=== PATIENT | female | born 1955 | race American Indian/Alaskan Native ===

== ENCOUNTER 2016-08-20 14:42 | Outpatient (CLI) | payer OTHER ==
--- NOTE | 2016-08-20 15:21 | Mammography Report ---
RIGHT DIGITAL DIAGNOSTIC MAMMOGRAM : 08/20/16 14:42:00 CLINICAL: Recalled for asymmetry. COMPARISON:07/07/16 screening FINDINGS: Lateralmedial, repeat CC and spot compression LM and CC views were performed. Satisfactory effacement of the previously described asymmetry on the spot views. No suspicious finding on the lateral or repeat CC views. IMPRESSION: Negative Mammogram. BI-RADS CATEGORY: 1 -- Negative RECOMMENDATION: Routine mammographic screening in one year. ACR BI-RADS MAMMOGRAPHIC CODES: 0 = Needs additional imaging evaluation; 1 = Negative; 2 = Benign; 3 = Probably benign; 4 = Suspicious; 5 = Malignant; 6 = Known biopsy-proven malignancy COMMENT: 1. Dense breast tissue, i.e., adenosis, fibrocystic changes, etc., may obscure an underlying neoplasm. 2. Approximately 10% of cancers are not detected with mammography. 3. A negative mammography report should not delay biopsy if a clinically suspicious mass is present. COMMENT: Patient follow-up letters are generated via our [employer] application.
== END 2016-08-20 14:43 | disposition home or self-care (01) ==
LOC: SPVWC 14:42
PROVIDERS: ATTEND Family Medicine
DX: R92.8 Other abnormal and inconclusive findings on diagnostic imaging of breast (principal)
CPT/HCPCS: G0206-RT

== ENCOUNTER 2019-03-02 08:47 | Outpatient (CLI) | payer BC ==
--- NOTE | 2019-03-02 10:47 | Mammography Report ---
DEXA BONE DENSITY SCAN INDICATION: POSTMENOPAUSAL. COMPARISON: None available. LUMBAR SPINE (L1-L4): Bone mineral density (BMD) is 1.076 g/cm2. T-score is -0.7 (standard deviations of Young Adult mean). Z-score is 1.3 (standard deviations of Age Matched mean). LEFT FEMORAL NECK: Bone mineral density (BMD) is 0.886 g/cm2. T-score is -0.5 (standard deviations of Young Adult mean). Z-score is 0.8 (standard deviations of Age Matched mean). IMPRESSION: 1. WHO Classification: Normal bone density. Fracture Risk: Not Increased. Signer Name: Elaine Moncada MD Signed: 03/02/2019 10:43 AM Workstation Name: [id number]
== END 2019-03-02 08:48 | disposition home or self-care (01) ==
LOC: SPVWC 08:47
PROVIDERS: ATTEND Family Medicine
DX: Z78.0 Asymptomatic menopausal state (principal)
CPT/HCPCS: 77080

== ENCOUNTER 2019-04-04 11:16 | Outpatient (CLI) | payer BC ==
--- NOTE | 2019-04-05 10:34 | Mammography Report ---
DIGITAL SCREENING MAMMOGRAM WITH CAD, 04/04/2019 INDICATION: Routine screening mammography. TECHNIQUE: Digital bilateral 2D mammography was obtained in the craniocaudal and mediolateral obliq ue projections. This examination was interpreted with the benefit of Computer-Aided Detection analysi s. COMPARISON: 07/07/2016 FINDINGS: Breast Density: The breasts are heterogeneously dense, which may obscure small masses. There is no evidence of dominant mass, suspicious calcifications or architectural distortion in the l eft breast. A right upper outer parenchymal asymmetry with architectural distortion requires addition al imaging. No suspicious calcifications. IMPRESSION: Right asymmetry requiring additional workup. Recommend recall for right spot compression views and right breast ultrasound if needed. Follow up recommendation: Special View: Spot Category 0: Incomplete. Needs additional imaging evaluation and/or prior mammograms for comparison. A "normal" or negative report should not discourage follow up or biopsy of a clinically significant f inding. A written summary of these findings will be mailed to the patient. The patient will be entered into a mammography reporting system which will generate a reminder letter for the patient's next appointmen t at the appropriate interval. The [employer] recommends yearly mammograms starting at age 40 and continuing as l brittnee as a woman is in good health. Breast MRI is recommended for women with an approximate 20-25% or greater lifetime risk of breast cancer, including women with a strong family history of breast or ova mariaelena cancer or who have been treated for Hodgkin's disease. Signer Name: Mike Munson MD Signed: 04/05/2019 10:29 AM Workstation Name: [id number]
== END 2019-04-04 11:17 | disposition home or self-care (01) ==
LOC: SPVWC 11:16
PROVIDERS: ATTEND Physician Assistant Medical
DX: Z12.31 Encounter for screening mammogram for malignant neoplasm of breast (principal)
CPT/HCPCS: 77067

== ENCOUNTER 2019-11-29 10:42 | Outpatient (CLI) | payer MEDICARE ==
--- NOTE | 2019-11-29 11:59 | Mammography Report ---
DIGITAL DIAGNOSTIC MAMMOGRAM WITH CAD, -- 11/29/2019 INDICATION: Patient presents as a callback from screening mammogram for further evaluation of a focal asymmetric density with possible associated distortion in the right breast. TECHNIQUE: Digital right mammographic imaging was performed. Spot compression views were obtained. This examination was interpreted with the benefit of Computer-aided Detection analysis. COMPARISON: Prior mammogram 04/04/2019 FINDINGS: Breast Density: The breasts are heterogeneously dense, which may obscure small masses. The previously described focal asymmetric density in the upper outer quadrant of the right breast is much less conspicuous on spot compression views, most compatible with overlapping fibroglandular tiss ue. IMPRESSION: 1. Focal asymmetric density is much less conspicuous on spot compression views, suggesting overlappin g fibroglandular tissue. Patient will return on 11/30/2019 for targeted ultrasound for confirmation. Follow up recommendation: Ultrasound Category 0: Incomplete. Needs additional imaging evaluation and/or prior mammograms for comparison. A "normal" or negative report should not discourage follow up or biopsy of a clinically significant f inding. A written summary of these findings will be mailed to the patient. The patient will be entered into a mammography reporting system which will generate a reminder letter for the patient's next appointmen t at the appropriate interval. According to the [employer], yearly mammograms are recommended starting at age 40 and continuing as long as a woman is in good health. Breast MRI is recommended for women with an jimena roximately 20-25% or greater lifetime risk of breast cancer, including women with a strong family his tory of breast or ovarian cancer and women who have been treated for Hodgkin's disease. Signer Name: Lori Jiménez MD Signed: 11/29/2019 11:54 AM Workstation Name: [id number]
== END 2019-11-29 10:43 | disposition home or self-care (01) ==
LOC: SPVWC 10:42
PROVIDERS: ATTEND Physician Assistant Medical
DX: N64.89 Other specified disorders of breast (principal)

== ENCOUNTER 2020-12-28 07:39 | Emergency (ER) | payer BC, MEDICARE ==
[2020-12-28 08:15] VITALS: BP 162/70
== END 2020-12-28 10:02 | disposition left against medical advice (07) ==
LOC: ED 07:39
DX: R51.9 Headache, unspecified (principal); Z53.21 Procedure and treatment not carried out due to patient leaving prior to being seen by health care provider

== ENCOUNTER 2021-01-17 12:30 | Outpatient (CLI) | payer MEDICARE ==
--- NOTE | 2021-01-17 15:06 | Mammography Report ---
DIGITAL SCREENING MAMMOGRAM WITH CAD, 01/17/2021 CLINICAL INFORMATION / INDICATION: Routine screening mammography. SCREENING MAMMO TECHNIQUE: Digital bilateral 2D mammography was obtained in the craniocaudal and mediolateral obliqu e projections. This examination was interpreted with the benefit of Computer-Aided Detection analysis . COMPARISON: 04/04/2019, 07/07/2016 FINDINGS: Breast Density: There are scattered areas of fibroglandular density. No dominant mass, suspicious calcifications, or architectural distortion in either breast. Focal asym metry in the right breast noted on the prior mammogram is decreased in size in the interval. IMPRESSION: No mammographic evidence of malignancy. Follow up recommendation: Routine yearly BI-RADS Category 2: Benign. A "normal" or negative report should not discourage follow up or biopsy of a clinically significant f inding. A written summary of these findings will be mailed to the patient. The patient will be entered into a mammography reporting system which will generate a reminder letter for the patient's next appointmen t at the appropriate interval. The [employer] recommends yearly mammograms starting at age 40 and continuing as l brittnee as a woman is in good health. Breast MRI is recommended for women with an approximate 20-25% or greater lifetime risk of breast cancer, including women with a strong family history of breast or ova mariaelena cancer or who have been treated for Hodgkin's disease. Signer Name: Haider Koroma MD Signed: 01/17/2021 3:01 PM Workstation Name: [id number]
== END 2021-01-17 12:31 | disposition home or self-care (01) ==
LOC: SPVWC 12:30
PROVIDERS: ATTEND Physician Assistant Medical
DX: Z12.31 Encounter for screening mammogram for malignant neoplasm of breast (principal); N64.89 Other specified disorders of breast
CPT/HCPCS: 77067